=== PATIENT | female | born 1995 | race Two or more races ===

== ENCOUNTER 2016-08-26 01:51 | Emergency (ER) | payer OTHER | END 2016-08-26 04:27 | disposition home or self-care (01) | DX: O03.9 Complete or unspecified spontaneous abortion without complication (principal); F17.200 Nicotine dependence, unspecified, uncomplicated ==

== ENCOUNTER 2017-02-08 20:14 | Emergency (ER) | payer OTHER ==
[2017-02-08] MEDS ORDERED: SODIUM CHLORIDE 0.9% 1,000 ML IV ONE (22:19)
--- NOTE | 2017-02-08 22:48 | ED Physician Documentation ---
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 worse today. No vag bleed or cramping Review of Systems Constitutional: denies: Fever, Chills Throat: denies: Sore throat Respiratory: denies: Cough GI: denies: Diarrhea, Hematemesis, Bloody / black stool Skin: denies: Rash Musculoskeletal: denies: Neck pain, Back pain Neurologic: denies: Headache PD PAST MEDICAL HISTORY - Past Medical History Past Medical History: No - Past Surgical History Past Surgical History: Yes HEENT: Tonsil/Adenoidectomy - Present Medications Home Medications: Ambulatory Orders Medication Instructions Recorded Confirmed Doxylamine/Pyridoxine HCl 2 each PO QPM PRN #20 tablet. 02/09/17 [Alex Handley 10-10 mg Tablet] - Allergies Allergies/Adverse Reactions: Allergies Allergy/AdvReac Type Severity Reaction Status Date / Time No Known Drug Allergies Allergy Verified 02/08/17 20:18 - Social History Does the pt smoke?: Yes Smoking Status: Light tobacco smoker Does the pt drink ETOH?: No Does the pt have substance abuse?: No - Immunizations Immunizations are current?: Yes - POLST Patient has POLST: No PD ED PE NORMAL - Vitals Vital signs reviewed: Yes - General General: Alert and oriented X 3, No acute distress, Well developed/nourished - HEENT HEENT: PERRL, Moist mucous membranes - Neck Neck: Supple, no meningeal sign - Cardiac Cardiac: RRR, Strong equal pulses - Respiratory Respiratory: No respiratory distress, Clear bilaterally - Abdomen Abdomen: Soft, Non tender, Non distended - Back Back: No CVA TTP, No spinal TTP - Derm Derm: Warm and dry, No rash - Extremities Extremities: No edema - Neuro Neuro: Alert and oriented X 3 - Psych Psych: Normal mood, Normal affect Results - Vitals Vitals: Oxygen O2 Source Room air - Labs Labs: Laboratory Tests 02/08/17 02/08/17 02/09/17 23:25 23:25 00:00 WBC 12.8 H RBC 4.35 Hgb 12.1 Hct 37.6 MCV 86.4 MCH 27.8 MCHC 32.2 RDW 13.4 Plt Count 244 MPV 7.3 L Neut # 10.1 H Lymph # 1.8 Carver # 0.8 Eos # 0.0 Baso # 0.1 Absolute Nucleated RBC 0.01 Nucleated RBCs 0.1 Sodium 137 Potassium 3.3 L Chloride 105 Carbon Dioxide 24 Anion Gap 8.0 BUN 8 Creatinine 0.6 Estimated GFR (MDRD) 124 Glucose 90 Calcium 8.7 Total Bilirubin 0.2 AST 17 ALT 15 Alkaline Phosphatase 43 Total Protein 7.0 Albumin 3.8 Globulin 3.2 Albumin/Globulin Ratio 1.2 Lipase 17 L Urine Color YELLOW Urine Clarity CLEAR Urine pH 6.0 Ur Specific [place] <=1.005 Urine Protein NEGATIVE Urine Glucose (UA) NEGATIVE Urine Ketones NEGATIVE Urine Occult Blood NEGATIVE Urine Nitrite NEGATIVE Urine Bilirubin NEGATIVE Urine Urobilinogen 0.2 (NORMAL) Ur Leukocyte Esterase NEGATIVE Ur Microscopic Review NOT INDICATED Urine Culture Comments NOT INDICATED PD MEDICAL DECISION MAKING - ED course Complexity details: reviewed results, re-evaluated patient, considered differential, d/w patient, d/w family ED course: Patient is a 21-year-old female who is approximately 8 weeks . Presents with nausea and vomiting. Given IV fluids and she does feel better. Appears to be dehydrated on exam and laboratory findings. Tolerating p.o. without difficulty here. Will place on doxylamine for home. Bedside ultrasound revealed a single intrauterine with a heart rate of approximately 160 bpm. The crown-rump length of approximately 8 weeks and 5 days. Patient and family counseled regarding signs and symptoms for which I believe and urgent re-evaluation would be necessary. Patient with good understanding of and agreement to plan and is comfortable going home at this time This document was made in part using voice recognition software. While efforts are made to proofread this document, sound alike and grammatical errors may occur. Departure - Departure Disposition: 01 Home, Self Care Clinical Impression: Vomiting affecting Condition: Good Instructions: ED Preg Morning Sickness Follow-Up: Michelle Thomas ARNP [Primary Care Provider] - Within 1 week Prescriptions: Doxylamine/Pyridoxine HCl [Alex Handley 10-10 mg Tablet] 2 each PO QPM PRN #20 tablet. PRN Reason: Nausea / Vomiting Comments: Drink plenty of fluids. Return if you worsen. Discharge Date/Time: 02/09/17 00:25
[2017-02-08 23:51] LABS: BASOPHILS # (AUTO) 0.1 10^3/uL (0.0-0.1); BASOPHILS % (AUTO) 0.4 %; EOSINOPHILS % (AUTO) 0.3 %; HCT - HEMATOCRIT 37.6 % (37.0-47.0); HGB - HEMOGLOBIN 12.1 g/dL (12.0-16.0); LYMPHOCYTES # (AUTO) 1.8 10^3/uL (1.5-3.5); LYMPHOCYTES % (AUTO) 14.3 %; MEAN CORPUSCULAR HEMOGLOBIN 27.8 pg (27.0-31.0); MEAN CORPUSCULAR HGB CONC 32.2 g/dL (32.0-36.0); MEAN CORPUSCULAR VOLUME 86.4 fL (81.0-99.0); MEAN PLATELET VOLUME 7.3 fL (7.9-10.8); MONOCYTES # (AUTO) 0.8 10^3/uL (0.0-1.0); MONOCYTES % (AUTO) 5.9 %; NEUTROPHILS # (AUTO) 10.1 10^3/uL (1.5-6.6); NEUTROPHILS % (AUTO) 79.1 %; NUCLEATED RED BLOOD CELLS AUTO 0.1 /100WBC; RED BLOOD COUNT 4.35 10^6/uL (4.20-5.40); RED CELL DISTRIBUTION WIDTH 13.4 % (12.0-15.0); UNCORRECTED WHITE BLOOD COUNT 12.8 x10^3/uL; WHITE BLOOD COUNT 12.8 x10^3/uL (4.8-10.8)
[2017-02-09 00:01] LABS: ALBUMIN/GLOBULIN RATIO 1.2 (1.0-2.2); BILIRUBIN,TOTAL 0.2 mg/dL (0.2-1.0); CALCIUM 8.7 mg/dL (8.5-10.3); CREATININE 0.6 mg/dL (0.4-1.0); POTASSIUM 3.3 mmol/L (3.5-5.0)
[2017-02-09 00:04] LABS: BILIRUBIN,URINE NEGATIVE (NEGATIVE)
[2017-02-09 00:07] LABS: UA CHARGE (STRIP ONLY) YES; UR CULTURE IF IND NOT INDICATED
[2017-02-09 00:29] VITALS: BP 124/72
== END 2017-02-09 00:25 | disposition home or self-care (01) ==
LOC: ED 20:14
DX: O21.9 Vomiting of pregnancy, unspecified (principal); Z3A.01 Less than 8 weeks gestation of pregnancy; O99.331 Smoking (tobacco) complicating pregnancy, first trimester; F17.200 Nicotine dependence, unspecified, uncomplicated
CPT/HCPCS: 36415; 80053; 81001; 81003; 83690; 85025; 87086; 96360; 99283